=== PATIENT | male | born 1995 | race Caucasian/White ===

== ENCOUNTER 2020-07-03 15:20 | Emergency (ER) | payer SELFPAY ==
[~2020-07-03] VITALS: Ht 177.8 cm; Wt 77.1 kg
--- NOTE | 2020-07-03 15:41 | NUR ---
Dr Faith at the bedside for MSE.
[2020-07-03] MEDS ORDERED: ALPR1TAB7 PO (15:44)
--- NOTE | 2020-07-03 15:50 | NUR ---
Patient discharged to home in stable condition, walked out with steady gait. Written and verbal after care instructions given. Patient verbalizes understanding of instructions. Stressed follow up or return to ER for worsening s/s.
[2020-07-03 15:51] VITALS: BP 126/81
== END 2020-07-03 15:54 | disposition home or self-care (01) ==
LOC: ER 15:20
DX: F41.9 Anxiety disorder, unspecified (principal)
CPT/HCPCS: A4663